=== PATIENT | female | born 1990 | race Caucasian/White ===

== ENCOUNTER 2018-03-17 19:38 | Observation (INO) ==
[2018-03-17 20:07] VITALS: RESP 18
--- NOTE | 2018-03-17 20:25 | ED ---
History of Present Illness Primary Care Physician: NOT REQUIRED Chief Complaint: abdominal cramping 3 days History of Present Illness: Patient is 28 yo at 34 weeks and 1 day. Patient presents with c/o abdominal cramping past 3 days. This afternoon, felt intermittent back pain. She reports active movements. No vaginal bleeding or leaking. She denies nausea or vomiting. States she has headache, but no vision changes or epigastric pain. care with Dr Arce. EDC 04/27/2018 complicated by gestational diabetes, diet controlled. Weeks Gestation:: 34 Para: 0 : 1 Review of Systems All other systems reviewed negative except as stated in HPI [facility] - Medical History Medical History: Medical History (Last Updated 03/18/18 @ 00:30 by Aubrey Edmond MD) Gestational diabetes - Surgical History Surgical History: Surgical History (Last Updated 03/17/18 @ 20:30 by Aubrey Edmond MD) History of knee surgery Hx of cholecystectomy Medications and Allergies Allergies Allergy/AdvReac Type Severity Reaction Status Date / Time Penicillins Allergy Severe Hives Verified 03/17/18 20:28 Home Medications Medication Instructions Recorded Confirmed Type PNV cmb#95-ferrous fumarate-FA 1 tab PO DAILY 03/17/18 03/17/18 History [] escitalopram oxalate [Lexapro] 10 mg PO DAILY 03/17/18 03/17/18 History Exam Vital signs: Vital Signs 03/17/18 20:06 Temperature 98.3 F Pulse Rate 115 H Respiratory Rate 18 Blood Pressure 144/92 H Narrative: GENERAL: Well-nourished, well-developed patient. SKIN: Warm and dry. HEAD: Normocephalic and atraumatic. EYES: No scleral icterus. No injection or drainage. ENT: No nasal drainage noted. Mucous membranes pink. Airway patent. NECK: Supple, trachea midline. No JVD. CARDIOVASCULAR: Regular rate and rhythm without murmurs, gallops, or rubs. RESPIRATORY: Breath sounds equal bilaterally. No accessory muscle use. BREASTS: Bilateral exam showed no masses , no retractions, no nipple discharge. ABDOMEN/GI: Abdomen soft, non-tender, bowel sounds present, no rebound, no guarding GRAVID Gravid to [34] weeks size Fundal Height: [-] GENITOURINARY: External Genitalia: intact and normal in appearance BUS glands: [wnl] Cervix: [soft] Dilatation: [closed] Effacement: [30%] posterior Station: [-4] Presentation: [-] Membranes: [intact] Uterine Contractions: [3-5 minutes] FHT's: Category: [1] Baseline: [130s] Reactive: [-] Variability: [good] Decels: [none] EXTREMITIES: No cyanosis or edema. BACK: Nontender without obvious deformity. No CVA tenderness. NEUROLOGICAL: Awake and alert. Motor and sensory grossly within normal limits. Five out of 5 muscle strength in all muscle groups. Normal speech. - Constitutional no acute distress Results - Labs CBC & Chem 7: 03/17/18 20:36 03/17/18 20:36 Assessment and Plan - Diagnosis (1) 36 weeks gestation of Code(s): Z3A.36 - 36 weeks gestation of Status: Acute (2) uterine contractions Code(s): O47.9 - False labor, unspecified Status: Acute Plan: fFN is positive. Cervix remains closed, long However she continues to contract after Terbutaline 0.25mg SQ x 2. Discussed with Dr Arce, recommended Stadol 2mg Still tavon about 5 minutes but not feeling them. FHR Cat [address] Arce plans 23 hour observation. Pt received Betamethasone 12mg IM (3) Hypertension affecting in third trimester Code(s): O16.3 - Unspecified maternal hypertension, third trimester Status: Acute Plan: BP improved after 1st two measurements. Patient is asymptomatic. CBC/ AST/ALT all wnl Urine PCR is elevated at 77 Discharge Plan - Discharge Disposition Patient Disposition: ED Admit(ED Internal Use Only) - Discharge Details Diagnosis: 34 weeks gestation of , Gestational diabetes mellitus (GDM), uterine contractions, Hypertension affecting in third trimester - Physicians Team ED Provider: Aubrey Edmond Primary Care Provider: NOT REQUIRED,
[2018-03-17 21:20] LABS: Hemoglobin 10.5 gm/dL (11.6-15.3); Mean Corpuscular HGB Conc 32.7 % (32.0-36.0); Mean Corpuscular Hemoglobin 24.4 pg (27.0-34.0); Mean Corpuscular Volume 74.4 fL (80.0-100.0); Mean Platelet Volume 10.3 fL (7.0-11.0); Platelet Count 303 th/mm3 (150-450); Red Cell Distribution Width 14.7 % (11.6-17.2); White Blood Count 14.4 th/mm3 (4.0-11.0)
[2018-03-17 21:34] LABS: Bacteria,Urine Occasional /hpf; Bilirubin,Urine Negative (Negative); Clarity,Urine Hazy (Clear); Color,Urine Yellow (Yellw/Straw); Glucose,Urine (UA) Negative (Negative); Hyaline Casts,Urine 1 /lpf (0-3); Leukocyte Esterase,Urine Negative (Negative); Mucus,Urine Moderate /lpf (Occasional); Nitrite,Urine Negative (Negative); Specific Gravity,Urine 1.023 (1.002-1.035); Squamous Epithelial Cell,Urine 4 /hpf (0-5)
[2018-03-17 21:36] LABS: Alanine Aminotransferase 16 U/L (10-53); Albumin 2.4 g/dL (3.4-5.0); Anion Gap 9 meq/L (5-15); Aspartate Aminotransferase 22 U/L (15-37); Blood Urea Nitrogen 7 mg/dL (7-18); Calcium 9.4 mg/dL (8.5-10.1); Carbon Dioxide 20.5 meq/L (21.0-32.0); Chloride 107 meq/L (98-107); Glomerular Filtration Rate Greater Than 89 mL/min (>89); Glucose,Random 83 mg/dL (74-106); Sodium 136 meq/L (136-145); Uric Acid 4.4 mg/dl (2.6-6.0)
[2018-03-17 21:37] LABS: Alkaline Phosphatase 141 U/L (45-117); Total Protein 7.3 g/dL (6.4-8.2)
[2018-03-17 22:21] LABS: Total Protein,Urine Random 77.8 mg/dL (0-11.8)
[2018-03-17 22:25] LABS: Protein/Creatinine Ratio,Urine 0.38 (0.00-0.14)
[2018-03-17] MEDS ORDERED: Betamethasone Sod Phos/Acetate Inj 30 MG/5 ML Vial IM ONE (23:15)
[2018-03-18] MEDS ORDERED: Acetaminophen 325 MG Tablet PO PRN (00:34)
[2018-03-18] MEDS ORDERED: Prenatal Vit/Ca/Iron/Folic Acid Tablet PO SCH (09:00)
[2018-03-18] MEDS ORDERED: Betamethasone Sod Phos/Acetate Inj 30 MG/5 ML Vial IM ONE (11:30)
[2018-03-18 11:46] VITALS: TEMP 98.6
[2018-03-18 11:47] VITALS: BP 146/76; PULSE 99
== END 2018-03-18 12:07 | disposition home or self-care (01) ==
LOC: H2E 19:38 → HOBED 19:38 → H2E 03-18 00:22
PROVIDERS: ADMIT Obstetrics & Gynecology; ATTEND Obstetrics & Gynecology
DX: O24.410 Gestational diabetes mellitus in pregnancy, diet controlled; Z88.0 Allergy status to penicillin; O16.3 Unspecified maternal hypertension, third trimester; Z90.49 Acquired absence of other specified parts of digestive tract; Z3A.36 36 weeks gestation of pregnancy; O47.03 False labor before 37 completed weeks of gestation, third trimester

== ENCOUNTER 2018-04-04 10:08 | Inpatient (IN) ==
[2018-04-04] MEDS ORDERED: Naloxone Inj 0.4 MG/ML Vial IV.PUSH PRN ×2 (10:52→23:51)
[2018-04-04] MEDS ORDERED: fentaNYL Citrate Inj 100 MCG/2 ML Ampul IV.PUSH PRN (10:52)
[2018-04-04] MEDS ORDERED: Oxytocin 30 Units/500ml Premix 30 UNITS/500 ML BAG IV.SIG ONE (10:52)
[2018-04-04] MEDS ORDERED: Sod Chloride 0.9% Inj 1,000 ML IV.CONT PRN (10:52)
[2018-04-04] MEDS ORDERED: Sodium Chlor 0.9% Inj 500 ML IV.SIG PRN (10:52)
[2018-04-04] MEDS ORDERED: Oxytocin 30 Units/500ml Premix 30 UNITS/500 ML BAG IV.SIG PRN (10:53)
--- NOTE | 2018-04-04 10:59 | P.HPOB ---
History of Present Illness Primary Care Physician: No Primary Care Physician Chief Complaint: oligohydramnios History of Present Illness: 28 yo at 36 5/7 weeks and oligohydramnios of 3.9. She has gestational diabetes diet controlled. She has no other complaints. Here for testing when oligo was diagnosed. Weeks Gestation:: 36 Para: 0 : 1 - Inpatient Certification I certify that the inpatient services were ordered in accordance with Medicare regulations governing the order. This includes certification that hospital inpatient services are reasonable and necessary and in the case of services not specified as inpatient-only under 42 CFR 419.22(n), that they are appropriately provided as inpatient services in accordance to with the 2-midnight benchmark under 43 CFR 412.3(e) Estimated Total Length of Stay (Days): 2 Plans for Post Hospital Care: Home Review of Systems All other systems reviewed negative except as stated in HPI [facility] - Medical History Medical History: Medical History (Last Updated 03/18/18 @ 00:30 by Aubrey Edmond MD) Gestational diabetes (Acute) - Surgical History Surgical History: Surgical History (Last Updated 03/17/18 @ 20:30 by Aubrey Edmond MD) History of knee surgery Hx of cholecystectomy Medications and Allergies Active Medications: Active Medications Citric Acid/Sodium Citrate (Sodium Citrate/Citric Acid Liq) 30 ml PO [employer] CAMILA Stop: 04/08/18 10:59 Escitalopram Oxalate (Lexapro) 10 mg PO DAILY [facility] Fentanyl Citrate (Fentanyl Inj) 100 mcg IV.PUSH Q1H PRN PRN Reason: PAIN SCALE 6 TO 10 Lactated Ringer's (Lr 1000 Ml Inj) 1,000 mls @ 125 mls/hr IV.CONT .Q8H CAMILA Lactated Ringer's (Lr 1000 Ml Inj) 1,000 mls @ 3,000 mls/hr IV.SIG UNSCH PRN PRN Reason: compromise or epidural Sodium Chloride (Ns Inj) 1,000 mls @ 100 mls/hr IV.CONT .Q10H PRN PRN Reason: SEE LABEL COMMENTS Lidocaine HCl (Xylocaine 1% Inj) 0.1 ml I-DERMAL PRN PRN PRN Reason: For IV start Stop: 04/07/18 10:51 Lidocaine HCl (Xylocaine 1% Inj) 10 ml INFILTRATN PRN PRN PRN Reason: For episiotomy repair Stop: 04/06/18 10:51 Mineral Oil (Muri-Lube Oil) 10 ml TOPICAL PRN PRN PRN Reason: PRN perineal massage Naloxone HCl (Narcan Inj) 0.1 mg IV.PUSH Q2M PRN PRN Reason: for opiate reversal Allergies Allergy/AdvReac Type Severity Reaction Status Date / Time Penicillins Allergy Severe Hives Verified 03/17/18 20:28 Home Medications Medication Instructions Recorded Confirmed Type PNV cmb#95-ferrous fumarate-FA 1 tab PO DAILY 03/17/18 04/04/18 History [] escitalopram oxalate [Lexapro] 10 mg PO DAILY 03/17/18 04/04/18 History Exam Vital signs: Vital Signs 04/04/18 10:31 Temperature 99.4 F Pulse Rate 101 H Respiratory Rate 18 Blood Pressure 155/94 H Intake & Output 04/03/18 04/04/18 04/04/18 18:59 06:59 18:59 Weight 127.006 kg Other: Weight On Admission 275 kg - Constitutional no acute distress - Routine HEENT Exam Head: Present: normocephalic - Routine Neck Exam Present: supple, full ROM - Routine Respiratory Exam Present: CTA bilaterally - Routine Cardiovascular Exam Present: RRR - Routine Abdominal Exam Present: soft, normoactive bowel sounds - Routine Exam External: Present: normal urethra appearance Perineum Description: Intact Comments: cervix 3 /70/-2 - Routine Extremities Exam Present: full ROM, pulses intact - Routine Neurological Exam Present: oriented X3 Results - Labs Group B Strep: Negative Caprini VTE Risk Assessment Caprini VTE Risk Assessment: No/Low Risk (score <= 1) Caprini Risk Assessment Model: Point Value = 1 Point Value = 2 Point Value = 3 Point Value = 5 Age 41-60 Minor surgery BMI > 25 kg/m2 Swollen legs Varicose veins or History of unexplained or recurrent spontaneous Oral contraceptives or hormone replacement Sepsis (< 1 month) Serious lung disease, including pneumonia (< 1 month) Abnormal pulmonary function Acute myocardial infarction Congestive heart failure (< 1 month) History of inflammatory bowel disease Medical patient at bed rest Age 61-74 Arthroscopic surgery Major open surgery (> 45 min) Laparoscopic surgery (> 45 min) Malignancy Confined to bed (> 72 hours) Immobilizing plaster cast Central venous access Age >= 75 History of VTE Family history of VTE Factor V Leiden Prothrombin [id number] Lupus anticoagulant Anticardiolipin antibodies Elevated serum homocysteine Heparin-induced thrombocytopenia Other congenital or acquired thrombophilia Stroke (< 1 month) Elective arthroplasty Hip, pelvis, or leg fracture Acute spinal cord injury (< 1 month) Prophylaxis Regimen: Total Risk Factor Score Risk Level Prophylaxis Regimen 0-1 Low Early ambulation 2 Moderate Order ONE of the following: *Sequential Compression Device (SCD) *Heparin 5000 units SQ BID 3-4 Higher Order ONE of the following medications: *Heparin 5000 units SQ TID *Enoxaparin/Lovenox 40 mg SQ daily (WT < 150 kg, CrCl > 30 mL/min) *Enoxaparin/Lovenox 30 mg SQ daily (WT < 150 kg, CrCl > 10-29 mL/min) *Enoxaparin/Lovenox 30 mg SQ BID (WT < 150 kg, CrCl > 30 mL/min) AND/OR *Sequential Compression Device (SCD) 5 or more Highest Order ONE of the following medications: *Heparin 5000 units SQ TID (Preferred with Epidurals) *Enoxaparin/Lovenox 40 mg SQ daily (WT < 150 kg, CrCl > 30 mL/min) *Enoxaparin/Lovenox 30 mg SQ daily (WT < 150 kg, CrCl > 10-29 mL/min) *Enoxaparin/Lovenox 30 mg SQ BID (WT < 150 kg, CrCl > 30 mL/min) AND *Sequential Compression Device (SCD) Assessment and Plan - Diagnosis (1) 36 weeks gestation of Code(s): Z3A.36 - 36 weeks gestation of Status: Acute (2) Gestational diabetes Code(s): O24.419 - Gestational diabetes mellitus in , unspecified control Status: Acute Plan: admit for induction
[2018-04-04] MEDS ORDERED: Citric Acid/Sodium Citrate Liq 30 ML UDC PO SCH (11:00)
[2018-04-04 12:51] LABS: Baso # (Auto) 0.1 th/mm3 (0.0-0.2); Baso % (Auto) 0.4 % (0.0-2.0); Eos # (Auto) 0.1 th/mm3 (0.0-0.4); Eos % (Auto) 0.5 % (0.0-4.0); Hematocrit 32.9 % (35.0-46.0); Hemoglobin 10.8 gm/dL (11.6-15.3); Lymph # (Auto) 4.3 th/mm3 (1.0-4.8); Lymph % (Auto) 31.1 % (9.0-44.0); Mean Corpuscular HGB Conc 32.9 % (32.0-36.0); Mean Corpuscular Hemoglobin 24.4 pg (27.0-34.0); Mean Corpuscular Volume 74.4 fL (80.0-100.0); Mean Platelet Volume 10.5 fL (7.0-11.0); Mono # (Auto) 0.9 th/mm3 (0.0-0.9); Mono % (Auto) 6.4 % (0.0-8.0); Neut # (Auto) 8.5 th/mm3 (1.8-7.7); Neut % (Auto) 61.6 % (16.0-70.0); Platelet Count 266 th/mm3 (150-450); Red Blood Count 4.42 mil/mm3 (4.00-5.30); Red Cell Distribution Width 15.8 % (11.6-17.2); White Blood Count 13.8 th/mm3 (4.0-11.0)
[2018-04-04 12:55] LABS: Bacteria,Urine Occasional /hpf; Bilirubin,Urine Negative (Negative); Clarity,Urine Hazy (Clear); Color,Urine Yellow (Yellw/Straw); Glucose,Urine (UA) Negative (Negative); Hyaline Casts,Urine 4 /lpf (0-3); Leukocyte Esterase,Urine Negative (Negative); Mucus,Urine Many /lpf (Occasional); Nitrite,Urine Negative (Negative); Specific Gravity,Urine 1.017 (1.002-1.035); Squamous Epithelial Cell,Urine 1 /hpf (0-5)
[2018-04-04] MEDS: fentaNYL Citrate Inj 100 MCG/2 ML Ampul IV.PUSH PRN ×2 (14:50→16:23)
[2018-04-04] MEDS ORDERED: Diphtheria/Tetanus/Pertussis Vaccine Inj 0.5 ML Syringe IM ONE (16:00)
[2018-04-04] MEDS ORDERED: Measles/Mumps/Rubella Vaccine Inj 0.5 ML Vial SQ ONE (16:00)
[2018-04-04] MEDS ORDERED: fentaNYL 2MCG-Bupiv 0.125% Epi 150 ML EPIDURAL ONE (18:05)
--- NOTE | 2018-04-04 18:17 | P.OBLABOR ---
Subjective Interval history: doing well SROM and OLIGO. Objective Vital Signs: Vital Signs - 8 hr 04/04/18 10:31 04/04/18 13:21 04/04/18 13:22 Temperature 99.4 F 98.2 F Pulse Rate 101 H 90 Respiratory Rate 18 18 Blood Pressure 155/94 H 133/88 04/04/18 13:54 04/04/18 14:25 04/04/18 15:29 Temperature Pulse Rate 97 H 92 H 99 H Respiratory Rate 18 18 Blood Pressure 130/91 H 141/84 H 123/91 H 04/04/18 16:53 04/04/18 17:40 Temperature 99.0 F Pulse Rate 100 H 93 H Respiratory Rate 18 Blood Pressure 150/100 H Objective: Pelvic Exam: Cervix: [-] Dilatation: 4 Effacement: [-] Station: [-] Presentation: vtx Membranes: SROM Uterine Contractions: [-] FHT's: Category: 1 Baseline: [-] Reactive: [-] Variability: [-] Decels: [-] Patient Started Active Labor: Yes Active Labor Start Date: 04/04/18 Active Labor Start Time: 10:00 Medical Induction of Labor: Yes (oligo) Artificial Rupture of Membrane: No Assessment and Plan - Diagnosis (1) 36 weeks gestation of Code(s): Z3A.36 - 36 weeks gestation of Status: Acute (2) Gestational diabetes Code(s): O24.419 - Gestational diabetes mellitus in , unspecified control Status: Acute Plan: admit for induction - Plan ruptured forebag and placed IUPC
[2018-04-04] MEDS ORDERED: fentaNYL 2MCG-Bupiv 0.125% Epi 150 ML EPIDURAL PRN (19:01)
[2018-04-04] MEDS ORDERED: fentaNYL Citrate Inj 100 MCG/2 ML Ampul EPIDURAL ONE (19:01)
--- NOTE | 2018-04-04 23:50 | P.OBDELI ---
Weeks Gestation: 36 Anesthesia: Epidural Episiotomy: none Vaginal Delivery: Vacuum (maternal exhaustion after 2.25 hours maternal request. Single application one contraction 2 pulls) Nuchal Cord: None Delayed Cord Clamping (45 sec): Yes Placenta: Spontaneous delivery, Intact, 3 vessel cord Laceration: Perineal, 2 deg Repair: Chromic running Infant: Male, Single
[2018-04-04] MEDS ORDERED: Benzocaine 20% Top Spray 60 ML Can TOPICAL PRN (23:51)
[2018-04-04] MEDS ORDERED: Witch Hazel 50%/Glyderin 12.5% 40 Pad Jar RECTAL PRN (23:51)
[2018-04-04] MEDS ORDERED: Oxytocin 30 Units/500ml Premix 30 UNITS/500 ML BAG IV.CONT PRN (23:51)
[2018-04-04] MEDS ORDERED: Acetaminophen 325 MG Tablet PO PRN (23:51)
[2018-04-04] MEDS ORDERED: Zolpidem Tartrate 5 MG Tablet PO PRN (23:51)
[2018-04-04] MEDS ORDERED: Bisacodyl 10 MG Supp RECTAL PRN (23:51)
[2018-04-05 08:44] VITALS: RESP 18; TEMP 97.6
[2018-04-05] MEDS: Senna/Docusate Sodium 8.6/50 MG Tablet PO SCH ×2 (09:39→20:45)
[2018-04-05] MEDS: Escitalopram 10 MG Tablet PO SCH (09:41)
[2018-04-05 11:34] VITALS: BP 144/98; PULSE 70
[2018-04-06] MEDS: Senna/Docusate Sodium 8.6/50 MG Tablet PO SCH (09:16)
--- NOTE | 2018-04-06 10:34 | P.DS ---
Date of admission: 04/04/18 10:08 Primary care physician: Wendy Primary Care Physician Brief History from admission: 28 yo at 36 5/7 weeks and oligohydramnios of 3.9. She has gestational diabetes diet controlled. She has no other complaints. Here for testing when oligo was diagnosed. DS: Diagnosis - Discharge Diagnosis (1) 36 weeks gestation of Status: Acute (2) Gestational diabetes Status: Acute DS: Summary Hospital Course: doing well dc home ppd#2 - Time Spent with Patient Total time spent providing and/or coordinating discharge services: Less than 30 minutes Exam - Constitutional no acute distress - Routine Respiratory Exam Present: CTA bilaterally - Routine Cardiovascular Exam Present: RRR - Routine Abdominal Exam Present: soft - Routine Skin Exam Present: intact - Routine Neurological Exam Present: oriented X3 Results Procedures completed during hospitalization: /vacuum Discharge Plan - Discharge Disposition Patient Disposition: 01 Discharge Home - Discharge Condition Condition: Good - Discharge Order Discharge Orders: Discharge Order (Routine); Ordered 04/06/18 Ordered By: Armand Salas - Physicians Team Primary Care Provider: Primary Care Wendy Mornoe Attending Provider: Armand Salas - Rxs /Orders / Referrals /Forms Prescriptions: Continue escitalopram oxalate [Lexapro] 10 mg Tablet 10 mg PO DAILY PNV cmb#95-ferrous fumarate-FA [] 28 mg iron- 800 mcg Tablet 1 tab PO DAILY Referrals: Armand Salas MD [Physician] - See Instructions (2 weeks) Primary Care Wendy Monroe [Primary Care Provider] - See Instructions - Post Discharge Care Plan Care Plan Goals: Discharge Plan of Care After Vaginal Delivery Congratulations on your new baby! We want your recovery to be mendes and trouble free. After having a baby, your body may be very tired. It can take time to recover from a vaginal delivery. You may stay in the hospital or center from 1 to 4 days. In some cases, you may be able to go home the same day. Changing Expectations for Parents: Most new mothers experience some form of the baby blues. These mood swings are caused by hormonal shifts in your body. Stress due to the recent changes in your life and lack of sleep also have an effect. The baby blues may last a few days or up to 2 weeks. Balancing the Blues: Recognize your need to talk, to feel protected, to have private time. Allow yourself to cry, to sit, to think. Ask for help when you need it, and accept help when its offered. Knowing your needs is not a weakness. Share your thoughts with your partner. Or milk pickup driver the phone and call a friend, your mother , a sister, or an aunt. Rest, eat right, and get some light exercise. The mind feels best when the body feels good. Diet and Activity: * Eat fresh fruit and vegetables, whole grains, and bran cereals. * Drink plenty of water. * Dont strain to have a bowel movement. * Follow activity as directed. * After you deliver your baby, you can start to exercise when you feel ready. Let your body be your guide. If you are : * Ask before you take any medicine. * If you leak milk, it will help to nurse right before the activity. * Talk to your healthcare provider about alcohol, if you choose to drink. * When youre sick, check with your physician if the medications would impact the breast feeding * Ask your physician before taking any prescription or [id number] medicines, herbs, or supplements. * Ask your physician what to use for prevention while you are nursing. If you have Stitches: * Gently wipe from front to back after you urinate or have a bowel movement.. * After wiping, spray warm water on the area. Or you can have a sitz bath. This means sitting in a tub with a few inches of water in it. * Pat the area dry or use a hairdryer on a cool setting. * Do not use soap or any solution except water on the area. * You can take a shower unless told not to. * Change sanitary pads at least every 2 to 4 hours.. * Place cold or heat packs on the area as directed by your physician or nurses. Keep a thin towel between the pack and your skin. When to call your doctor: Call your doctor right away if you have: Fever of 100.5F (38C) or higher, or as directed by your doctor. Heavy or gushing bleeding from the vagina. Discharge that has a bad odor. No bowel movement within one week after the of your baby. Pain or urgency with urination, or inability to urinate. Severe pain in the belly or increased pain near your stitches. Signs of Depression include: You dont want to be with the baby. Your symptoms are not getting better, and youre getting more upset. You have no interest in eating or are not able to sleep. You think you may harm yourself or the baby. The Depression After Delivery hotline (989-925-4447) may also be helpful. If your symptoms worsen call your OB Physician, or go to an Urgent Care Center or Emergency Room Smoking is Dangerous to your health. Avoid second hand smoke Call the 24-hour crisis hotline for domestic abuse at Follow-Up: Do Not miss your follow-up appointment. Increasing symptoms of depression. Keep up with all your appointments and yearly check ups. Call 911: Call 911 right away if you have: Chest pain. Shortness of breath. Any pain or tenderness in your calf. Severe depression or Thoughts of harm to self and others.
[2018-04-06] MEDS: Escitalopram 10 MG Tablet PO SCH (12:00)
== END 2018-04-06 14:05 | disposition home or self-care (01) | DRG 807 ==
LOC: H2E 10:08 → H1EA 04-05 02:10
PROVIDERS: ADMIT Obstetrics & Gynecology; ATTEND Obstetrics & Gynecology
CPT/HCPCS: 59025; 76816; 76818; 80307; 81001; 85025; 86900; 86901; G0481; G0483; J2590; J3010; J7120